=== PATIENT | female | born 1985 | race Hispanic/Latino ===

== ENCOUNTER 2020-06-29 12:39 | Emergency (ER) | payer OTHER, SELFPAY ==
[2020-06-29] MEDS ORDERED: CYCLOBENZAPRINE 10 MG TAB ONE (13:40)
[2020-06-29] MEDS ORDERED: IBUPROFEN 400 MG TAB ONE (13:40)
[2020-06-29] MEDS ORDERED: IBUPROFEN 200 MG TAB PO ONE (13:40)
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
[2020-06-29 14:33] VITALS: BP 125/88; TEMP 98.6; O2SAT 99
== END 2020-06-29 14:28 | disposition home or self-care (01) ==
LOC: ER 12:39
DX: R07.89 Other chest pain (principal); V49.59XA Passenger injured in collision with other motor vehicles in traffic accident, initial encounter
CPT/HCPCS: 71045; 99283